=== PATIENT | male | born 1975 | race Caucasian/White ===

== ENCOUNTER 2025-01-01 07:42 | Outpatient (CLI) | payer OTHER | END 2025-01-01 07:43 | disposition home or self-care (01) | LOC: CSHCT 07:42 | PROVIDERS: ATTEND Internal Medicine | DX: Z13.6 Encounter for screening for cardiovascular disorders (principal); I25.10 Atherosclerotic heart disease of native coronary artery without angina pectoris | CPT/HCPCS: 75571 ==